=== PATIENT | female | born 1960 | race Caucasian/White ===

== ENCOUNTER → 2022-06-18 | Outpatient (CLI) | payer OTHER, SELFPAY ==
--- NOTE | 2022-06-18 | KNEE_PTH ---
PATIENT: VIK VARGAS [id number] AGE/SX: 61/F ROOM: RE06/18/[address]: Dr. Raymond Ragsdale MD : 1960 BED: DIS: 06/18/2022 SPEC #: [id number] RECD: 06/18/22 15:00 STATUS: AYSHA RENabeel #: [id number] ANSHUL: 06/18/22 00:[address]: Raymond Ragsdale DEPT: SURGICAL PATHOLOGY RECD BY: Jose Mcclure ENTERED: 06/19/22 11:52 SP TYPE: TOTAL KNEE OTHR DR: No Primary Care Phys [facility] Tissues: Knee, NOS Procedures: Decalcification bone/plaque Surgery Specimen Level IV HEADER OPERATION: Left total knee replacement PRE-OP DIAGNOSIS: Grade 4 posttraumatic osteoarthritis with varus deformity TISSUE SUBMITTED: Bone and soft tissue left knee MICROSCOPIC DIAGNOSIS Bone and tissue of left knee, total knee resection: Severe degenerative joint disease. Mild synovial hyperplasia. AM:amber 06/22/2022 MICROSCOPIC DESCRIPTION Slides are reviewed. GROSS DESCRIPTION Received is one container designated bone and tissue left knee. The specimen consists of multiple fragments of rivera-yellow bone measuring in aggregate 16.0 x 12.0 x 2.0 cm. Also in the specimen container are multiple fragments of yellow-white soft tissue measuring in aggregate 8.0 x 6.0 x 2.2 cm. A number of bony fragments contain articular surfaces consistent with tibial plateau and femoral condyle and displaying prominent osteophyte formation, eburnation and bone erosion. [employer] sections are submitted in two cassettes as follows: 1 - soft tissue, 2 - bone after decalcification. / AM:amber 06/19/2022 TC:5 CPT: 63796, 09413
== END | disposition home or self-care (01) ==
LOC: LABSPEC 15:31
PROVIDERS: Referring Provider Orthopaedic Surgery; Visit Provider Orthopaedic Surgery
DX: M17.32 Unilateral post-traumatic osteoarthritis, left knee (principal)
CPT/HCPCS: 88305; 88311